=== PATIENT | female | born 1980 | race Two or more races ===

== ENCOUNTER 2017-02-01 23:30 | Inpatient (IN) | payer SELFPAY ==
[~2017-02-01] VITALS: Ht 157.5 cm; Wt 68.4 kg
[2017-02-01] MEDS ORDERED: ONDANSETRON ODT 4 MG ONE (23:46)
[2017-02-02] MEDS ORDERED: ONDANSETRON ODT 4 MG PO ONE
[2017-02-02] MEDS ORDERED: ONDANSETRON 2MG/ML, 2ML IVPush ONE (00:30)
[2017-02-02] MEDS ORDERED: MORPHINE SULFATE 4 MG/ML, 1ML IVPush PRN ×2 (00:30→02:30)
[2017-02-02] MEDS ORDERED: SODIUM CHLORIDE 0.9% 1,000ML IVBOLUS ONE (00:30)
[2017-02-02] MEDS ORDERED: MORPHINE SULFATE 4 MG/ML, 1ML ONE ×2 (00:32→03:06)
[2017-02-02] MEDS ORDERED: ONDANSETRON 2MG/ML, 2ML ONE ×2 (00:32→08:07)
[2017-02-02 00:53] LABS: ASPARTATE AMINO TRANSFERASE 12 U/L (15-37); BLOOD UREA NITROGEN 16 mg/dL (7-18)
[2017-02-02] MEDS ORDERED: OMNIPAQUE 350 MG/ML, 100ML BOTTLE ONE (01:19)
[2017-02-02] MEDS ORDERED: SODIUM CHLORIDE 0.9% 1,000 ML IV ONE (02:30)
[2017-02-02] MEDS ORDERED: CEFOTETAN PMX 1GM/50ML 50 ML IV ONE (02:30)
[2017-02-02] MEDS ORDERED: ONDANSETRON 2MG/ML, 2ML IVPush PRN (02:30)
[2017-02-02] MEDS ORDERED: CEFOTETAN PMX 1GM/50ML 50 ML ONE (02:33)
[2017-02-02 03:25] VITALS: BP 114/76
[2017-02-02] MEDS ORDERED: BUPIVACAINE/PF-EPI 0.5% 1:200K ONE (07:19)
[2017-02-02] MEDS ORDERED: BUPIVACAINE/PF-EPI 0.25% 1:200K ONE (07:21)
[2017-02-02 07:52] VITALS: BP 119/78
[2017-02-02] MEDS ORDERED: FENTANYL PF 250 MCG/5ML ONE (07:56)
[2017-02-02] MEDS ORDERED: MIDAZOLAM 1 MG/ML, 2ML ONE (07:56)
[2017-02-02] MEDS ORDERED: GLYCOPYRROLATE 0.2MG/1ML ONE (08:07)
[2017-02-02] MEDS ORDERED: ROCURONIUM 10 MG/ML ONE (08:07)
[2017-02-02] MEDS ORDERED: NEOSTIGMINE 1 MG/ML, 10ML ONE (08:07)
[2017-02-02] MEDS ORDERED: PROPOFOL 10 MG/ML, 20ML ONE (08:07)
[2017-02-02] MEDS ORDERED: DEXAMETHASONE 4 MG/ML, 1ML ONE (08:07)
[2017-02-02] MEDS ORDERED: KETOROLAC 30 MG/1 ML ONE (08:07)
[2017-02-02] MEDS ORDERED: CEFAZOLIN 1,000 MG ONE (08:07)
[2017-02-02] MEDS ORDERED: SUCCINYLCHOLINE 20 MG/ML, 10ML ONE (08:07)
[2017-02-02] MEDS ORDERED: BUPIVACAINE/PF-EPI 0.25% 1:200K INFIL ONE (08:42)
[2017-02-02] MEDS ORDERED: HALOPERIDOL 5 MG/ML IV ONE (09:00)
[2017-02-02] MEDS ORDERED: hydrALAzine 20 MG/ML, 1ML IV PRN (09:00)
[2017-02-02] MEDS ORDERED: METOPROLOL 1 MG/ML, 5ML IV PRN (09:00)
[2017-02-02] MEDS ORDERED: ACETAMINOPHEN 325 MG TABLET PO PRN ×2 (09:00→10:30)
[2017-02-02] MEDS ORDERED: MEPERIDINE/PF 25MG/0.5ML IVPush PRN (09:00)
[2017-02-02] MEDS ORDERED: OXYcodone 5 MG/5 ML ORAL.SOL UDC PO PRN (09:00)
[2017-02-02] MEDS ORDERED: FENTANYL PF 100 MCG/2ML IV PRN (09:00)
[2017-02-02] MEDS ORDERED: HYDROmorphone 1 MG/ML, 1ML IV PRN (09:00)
[2017-02-02] MEDS ORDERED: ALBUTEROL SULFATE 2.5 MG/3 ML NPPB PRN (09:00)
[2017-02-02] MEDS ORDERED: OXYcodone 5 MG/5 ML ORAL.SOL UDC ONE (09:08)
[2017-02-02] MEDS ORDERED: FENTANYL PF 100 MCG/2ML ONE (09:17)
[2017-02-02] MEDS: METRONIDAZOLE PMX 500MG/100ML 100 ML IVPB SCH ×2 (09:30→17:48)
[2017-02-02] MEDS ORDERED: DO NOT STOP ANTIBIOTICS AFTER 24HRS MC SCH (10:30)
[2017-02-02] MEDS ORDERED: ONDANSETRON 2MG/ML, 2ML IV PRN (10:30)
[2017-02-02] MEDS ORDERED: ACETAMINOPHEN 650 MG SUPP PR PRN (10:30)
[2017-02-02] MEDS ORDERED: LACTATED RINGERS 1,000 ML IV SCH (10:30)
[2017-02-02] MEDS ORDERED: HYDROcodone/APAP 5/325 TABLET PO PRN (10:30)
[2017-02-02 14:17] VITALS: BP 111/65
[2017-02-02] MEDS: KETOROLAC 30 MG/1 ML IV PRN (16:23)
[2017-02-02] MEDS: LACTATED RINGERS 1,000 ML IV SCH (17:52)
[2017-02-02 19:39] VITALS: BP 147/63
[2017-02-02] MEDS: CEFOTETAN PMX 1GM/50ML 50 ML IVPB SCH (20:57)
[2017-02-03] MEDS: METRONIDAZOLE PMX 500MG/100ML 100 ML IVPB SCH ×3 (01:48→17:47)
[2017-02-03 04:40] VITALS: BP 106/58
[2017-02-03] MEDS: LACTATED RINGERS 1,000 ML IV SCH (05:14)
[2017-02-03 06:04] LABS: BLOOD UREA NITROGEN 11 mg/dL (7-18)
[2017-02-03] MEDS: CEFOTETAN PMX 1GM/50ML 50 ML IVPB SCH ×2 (07:53→19:53)
[2017-02-03] MEDS: ENOXAPARIN 30 MG/0.3 ML SQ SCH ×2 (07:53→19:53)
[2017-02-03 08:02] VITALS: BP 123/69
[2017-02-03] MEDS: KETOROLAC 30 MG/1 ML IV PRN ×2 (10:12→16:28)
[2017-02-03 16:23] VITALS: BP 130/81
[2017-02-03 19:45] VITALS: BP 120/78
[2017-02-03] MEDS ORDERED: LACTATED RINGERS 1,000 ML IV SCH (20:00)
[2017-02-04] MEDS: KETOROLAC 30 MG/1 ML IV PRN ×2 (00:13→08:51)
[2017-02-04] MEDS: METRONIDAZOLE PMX 500MG/100ML 100 ML IVPB SCH ×2 (01:41→10:37)
[2017-02-04 03:44] VITALS: BP 123/77
[2017-02-04 06:47] VITALS: BP 131/86
[2017-02-04] MEDS: CEFOTETAN PMX 1GM/50ML 50 ML IVPB SCH (08:48)
[2017-02-04] MEDS: ENOXAPARIN 30 MG/0.3 ML SQ SCH (08:48)
[2017-02-04] MEDS ORDERED: AMOX1TAB64 PO (09:16)
[2017-02-04] MEDS ORDERED: HYDR-3240 PO (09:16)
[2017-02-04 12:57] VITALS: BP 141/85
== END 2017-02-04 13:05 | disposition home or self-care (01) | DRG 340 ==
LOC: ED 02-02 02:17 → EDIP 02-02 02:49 → 4NOR 02-02 03:19
PROVIDERS: ADMIT Surgery Vascular Surgery; ATTEND Surgery Vascular Surgery
PROC: 0DTJ4ZZ Resection of Appendix, Percutaneous Endoscopic Approach (ICD-10-PCS; principal; 2017-02-02 08:00)
DX: K35.2 Acute appendicitis with generalized peritonitis (principal)
CPT/HCPCS: 36415; 74177; 80048; 80053; 81001; 82040; 83690; 84703; 85025; 87086; 88304; 96361; 96365; 96375; 96376; C1729; J0690; J1100; J1650; J1885; J2250; J2405; J2704; J2710; J3010; J3490; Q0162; Q9967; J0330; J7030; J7120; S0074